=== PATIENT | female | born 1990 | race Caucasian/White ===

== ENCOUNTER 2018-07-10 13:46 | Observation (INO) | payer OTHER ==
[2018-07-10] MEDS: ALBUTEROL SO4 2.5/IPRATROPIUM 0.5 INH SOL 3 ML VIAL.NEB. NEB SCH ×4 (13:50→14:49)
--- NOTE | 2018-07-10 14:22 | PDOC ---
Rapid Medical Evaluation Chief Complaint: Asthma Time Seen by Provider: 07/10/18 14:19 Medical Evaluation: Allergies Allergy/AdvReac Type Severity Reaction Status Date / Time No Known Allergies Allergy Verified 07/10/18 14:18 07/10/18 14:19 I have performed a brief in-person evaluation of this patient. The patient presents with a chief complaint of: URI w/ sob and tightness, using rescue inhaler but still symptomatic. H/o asthma, PNA, smoker Pertinent physical exam findings: Tachy to 102 but speaking in full sentences w / some exp wheezing I have ordered the following:received 3 duonebs in [place], upreg/cxr/prednisone The patient will proceed to the ED for further evaluation. 07/10/18 14:25 Discharge Disposition - Diagnosis Asthma Qualifiers: Asthma severity: unspecified severity Asthma persistence: unspecified Asthma complication type: unspecified Qualified Code(s): J45.909 - Unspecified asthma, uncomplicated - Referrals - Patient Instructions - Post Discharge Activity
[2018-07-10] MEDS ORDERED: predniSONE 20 MG TABLET (UD) PO ONE (14:24)
[2018-07-10] MEDS ORDERED: predniSONE 20 MG TABLET (UD) ONE (14:46)
[2018-07-10] MEDS ORDERED: ALBUTEROL SO4 2.5/IPRATROPIUM 0.5 INH SOL 3 ML VIAL.NEB. NEB ONE (14:46)
--- NOTE | 2018-07-10 15:05 | PDOC ---
History of Present Illness - General Chief Complaint: Asthma Stated Complaint: ASTHMA Time Seen by Provider: 07/10/18 14:19 History Source: Patient Exam Limitations: No Limitations - History of Present Illness Initial Comments: 07/10/18 15:00 Patient states has been suffering with URI for the past week which is progressively worsened causing a re-exacerbation of her asthma the past 2-3 days. Denies fever, denies any earache or sore throat pain however states respiratory status is worsened, is bringing up thick clear and white phlegm. Has been using albuterol at home with minimal resolved. Timing/Duration: reports: other, getting worse Severity: reports: mild Modifying Factors: improves with: albuterol inhaler, coughing Associated Symptoms: reports: cough, nasal congestion, nasal drainage, wheezing. denies: fever/chills Past History - Travel Traveled outside of the country in the last 30 days: No Close contact w/someone who was outside of country & ill: No - Past Medical History Allergies/Adverse Reactions: Allergies Allergy/AdvReac Type Severity Reaction Status Date / Time No Known Allergies Allergy Verified 07/10/18 14:18 Home Medications: Ambulatory Orders Unobtainable 07/10/18 Asthma: Yes Cardiac Disorders: No COPD: No Diabetes: No GI Disorders: No Disorders: No HTN: No Seizures: No - Reproductive History PID: No - Immunization History Immunization Up to Date: Yes - Suicide/Smoking/Psychosocial Hx Smoking History: Current every day smoker Have you smoked in the past 12 months: Yes Number of Cigarettes Smoked Daily: 5 Information on smoking cessation initiated: No 'Breaking Loose' booklet given: 07/27/15 Hx Alcohol Use: No Drug/Substance Use Hx: No Substance Use Type: Alcohol Hx Substance Use Treatment: Yes (Marijuana 2006-[facility]) Respiratory Specific PMHX - Complaint Specific PMHX TB (Tuberculosis): No Review of Systems - Review of Systems Able to Perform ROS?: Yes Is the patient limited Venezuelan proficient: Yes Constitutional: Yes: Symptoms Reported, Malaise HEENTM: Yes: Symptoms Reported, See HPI, Nose Congestion. No: Throat Pain, Throat Swelling Respiratory: Yes: Symptoms reported, See HPI, Cough, Wheezing Musculoskeletal: No: Symptoms Reported Integumentary: No: Symptoms Reported, See HPI All Other Systems: Reviewed and Negative *Physical Exam - Vital Signs Last Vital Signs Temp Pulse Resp BP Pulse Ox 99.0 F 102 H 20 150/101 H 96 07/10/18 14:19 07/10/18 14:19 07/10/18 14:19 07/10/18 14:19 07/10/18 14:19 - Physical Exam General Appearance: Yes: Nourished, Appropriately Dressed, Apparent Distress, Moderate Distress HEENT: positive: JOSUÉ, TMs Normal, Pharynx Normal, Nasal Congestion, Rhinorrhea , Sinus Tenderness Neck: positive: Supple, Lymphadenopathy (R), Lymphadenopathy (L) Respiratory/Chest: positive: Decreased Breath Sounds, Wheezing. negative: Lungs Clear, Normal Breath Sounds Gastrointestinal/Abdominal: positive: Soft, Guarding, Rebound. negative: Tender Musculoskeletal: positive: Normal Inspection. negative: CVA Tenderness Extremity: positive: Normal Capillary Refill Integumentary: positive: Normal Color, Dry, Warm, Pale Neurologic: positive: explosive operator fuse II-XII NML intact, Fully Oriented, Normal Response, Motor Strength 07/19 ED Treatment Course - LABORATORY CBC & Chemistry Diagram: 07/10/18 19:32 07/10/18 19:32 - ADDITIONAL ORDERS Additional order review: Laboratory Results 07/10/18 14:26 Urine HCG, Qual Negative - Medications Given in the ED: ED Medications Discontinued Medications Generic Name Dose Route Start Last Admin Trade Name Anjelq PRN Reason Stop Dose Admin Prednisone 60 mg 07/10/18 14:24 07/10/18 14:49 Deltasone - PO 07/10/18 14:25 60 mg ONCE ONE Administration Medical Decision Making - Medical Decision Making 07/10/18 16:03 from waiting room, after approximately one hour, and receiving 4 DuoNeb treatments for tight asthmatic symptom while in waiting room. Moved to room 2 and received fifth albuterol treatment with 60 mg of prednisone. Chest x-ray obtained which did not show significant infiltrate or pathology, but patient's respiratory status has not improved. after additional hour. Due to significant number of treatments and steroid use without significant resolve, breath sounds continued tight expiratory wheezing. Patient understands may need overnight admission for continued treatment and observation. Discussed with charge nurse and moved patient to room 6. 07/10/18 19:56 *DC/Admit/Observation/Transfer Diagnosis at time of Disposition: Asthma exacerbation Qualifiers: Asthma severity: unspecified severity Asthma persistence: persistent Qualified Code(s): J45.901 - Unspecified asthma with (acute) exacerbation - Discharge Dispostion Disposition: HOME Condition at time of disposition: Stable Decision to Admit order: No - Referrals Referrals: Glynn Fair MD [Primary Care Provider] - - Patient Instructions - Post Discharge Activity
[2018-07-10] MEDS ORDERED: TERBUTALINE SULFATE 1 MG/1 ML VIAL SQ ONE ×2 (19:23→19:54)
[2018-07-10] MEDS ORDERED: MAGNESIUM SULF 50% (8.12 MEQ/2 ML-1 GM VIAL) IVPB ONE (19:23)
--- NOTE | 2018-07-10 19:24 | PDOC ---
*Physical Exam - Vital Signs Last Vital Signs Temp Pulse Resp BP Pulse Ox 99.0 F 85 16 126/69 97 07/10/18 14:19 07/10/18 18:48 07/10/18 18:48 07/10/18 18:48 07/10/18 19:08 - Physical Exam General Appearance: Yes: Appropriately Dressed, Obese. No: Apparent Distress HEENT: positive: EOMI, JOSUÉ, Normal ENT Inspection, Nasal Congestion Neck: positive: Trachea midline, Supple. negative: Lymphadenopathy (R), Lymphadenopathy (L) Respiratory/Chest: positive: Wheezing (bilaterally). negative: Chest Tender Cardiovascular: positive: Regular Rhythm, Regular Rate, S1, S2. negative: Edema , JVD, Murmur Gastrointestinal/Abdominal: positive: Normal Bowel Sounds, Soft. negative: Tender Musculoskeletal: negative: CVA Tenderness Extremity: positive: Normal Capillary Refill. negative: Swelling, Calf Tenderness Integumentary: positive: Normal Color, Dry, Warm Neurologic: positive: corporate legal secretary II-XII NML intact, Fully Oriented, Alert, Normal Mood/ Affect, Normal Response, Motor Strength 07/19 ED Treatment Course - LABORATORY CBC & Chemistry Diagram: 07/10/18 19:32 07/10/18 19:32 - ADDITIONAL ORDERS Additional order review: Laboratory Results 07/10/18 14:26 Urine HCG, Qual Negative - Medications Given in the ED: ED Medications Discontinued Medications Generic Name Dose Route Start Last Admin Trade Name Anjelq PRN Reason Stop Dose Admin Albuterol/Ipratropium 1 amp 07/10/18 14:30 07/10/18 14:49 Duoneb - NEB 07/10/18 15:16 1 amp Q15M KALLIE Administration Prednisone 60 mg 07/10/18 14:24 07/10/18 14:49 Deltasone - PO 07/10/18 14:25 60 mg ONCE ONE Administration Medical Decision Making - Medical Decision Making 07/10/18 19:35 Pt is a 28yo F with PMH of Asthma, HTN, DM presenting to ED with complaints of SOB due to asthma exacerbation. Pt states she was having a cold and congestion for the past few days and difficulty breathing but today the breathing was much worse. She did not have improvement even with use of rescue inhaler which pt states she used "many times". She has not been using her nebulizer because it is broken. She endorses chest pain since she started having the congestion. Denies syncope, abdominal pain, fevers, chills, productive cough, n/v/d, recent travel, leg swelling, recent surgeries. Denies use of OCPs. She has been hospitalized in the past for asthma exacerbation. Has never been intubated. She was seen in [facility], given 4 duonebs and 60mg prednisode without relief. PMD: Manjula PMH: see hpi PSH: none Meds: insulin, albuterol, htn pills Allergies: nkda Social: smokes 5 cigarettes/day pt continues to have wheezing bilaterally, saturating mid 90s on NC. Still feels sob. will admit for asthma exacerbation. -2mg MG. -labs, ekg. labs show leukocytosis (pt received steroids prior to blood draw) normal d-dimer. trop negative. ekg: nsr at 91. no kecia or depressions. slight t wave flattening in V1, V2, aVL. cxr: no acute pathology. pt continues to have wheezing and feels short of breath. will admit obs for exacerbation. admitted to hospitalist. *DC/Admit/Observation/Transfer Diagnosis at time of Disposition: Asthma exacerbation Qualifiers: Asthma severity: unspecified severity Asthma persistence: persistent Qualified Code(s): J45.901 - Unspecified asthma with (acute) exacerbation - Discharge Dispostion Disposition: HOME Condition at time of disposition: Stable Decision to Admit order: Yes - Referrals Referrals: Glynn Fair MD [Primary Care Provider] - - Patient Instructions - Post Discharge Activity
[2018-07-10] MEDS ORDERED: MAGNESIUM 1GM/D5W - 2 GM/200 ML IVPB IVPB ONE (19:54)
[2018-07-10 19:55] LABS: BASO % 0.3 % (0-2.0); HEMOGLOBIN 13.4 GM/dL (10.7-15.3); LYMPH % 3.3 % (8-40); MCH 33.3 pg (25.7-33.7); MCHC 34.2 g/dl (32.0-36.0); MEAN CELL VOLUME 97.2 fl (80-96); MEAN PLT VOLUME 9.1 fl (7.5-11.1); MONO % 1.2 % (3.8-10.2); NEUT % 95.2 % (42.8-82.8); PLATELET COUNT 242 K/MM3 (134-434); RBC 4.01 M/mm3 (3.60-5.2); RDW 13.8 % (11.6-15.6)
[2018-07-10 20:11] LABS: ALBUMIN 4.2 g/dl (3.4-5.0); ALK PHOS 65 U/L (45-117); ANION GAP 9 MMOL/L (8-16); BILIRUBIN,TOTAL 0.5 mg/dL (0.2-1); BLOOD UREA NITROGEN 8 mg/dL (7-18); CHLORIDE 107 mmol/L (98-107); CO2 22 mmol/L (21-32); CREATININE 0.7 mg/dL (0.55-1.3); GLUCOSE,RANDOM 137 mg/dL (74-106); MAGNESIUM 2.3 mg/dL (1.8-2.4); SGOT/AST 19 U/L (15-37); SGPT/ALT 22 U/L (13-61); SODIUM 138 mmol/L (136-145); TOT PROT 7.9 g/dl (6.4-8.2)
[2018-07-10 20:33] LABS: CALCIUM 9.2 mg/dL (8.5-10.1)
--- NOTE | 2018-07-10 20:56 | PN ---
Teaching Attending Note Name of Resident: Berenice Almonte ATTENDING PHYSICIAN STATEMENT I saw and evaluated the patient. I reviewed the resident's note and discussed the case with the resident. I agree with the resident's findings and plan as documented. SUBJECTIVE: Patient is a 28 year old woman with a PMH of NIDDM, asthma and hypertension who presents to the ER with shortness of breath secondary to asthma exacerbation today. The patient states that she has had a cold and associated congestion for the past few days with difficulty breathing. She states that her breathing had worsened today despite use of her inhaler. She denies use of her nebulizer at home secondary to non-functionality. The patient has had some chest pain with her congestion. She has been hospitalized in the past for asthma exacerbation but never been intubated. Has been around her 3 year old niece who has URI symptoms and she has had URI symptoms for the past week with productive cough. She denies any fever or chills at this time. Denies nausea, vomiting, diarrhea, constipation or urinary symptoms. She denies any headache, dizziness, numbness, weakness. She denies any other complaints. OBJECTIVE: Alert Vital Signs Period Temp Pulse Resp BP Sys/Mills Pulse Ox Last 24 Hr 98.9 F-99.0 F 85-102 16-20 126-150/69-101 91-98 HEENT: No Jaundice, eye redness or discharge, PERRLA, EOMI. Normocephalic, atraumatic. External ears are normal and hearing is grossly intact. No nasal discharge. Neck: Supple, nontender. No palpable adenopathy or thyromegaly. No JVD Chest: Good effort. Clear to auscultation and percussion. Heart: Regular. No S3, rub or murmur Abdomen: Not distended, soft, nontender and no HSM. No rebound or guarding. Normal bowel sounds. Ext: Peripheral pulses intact. No leg edema. Skin: Warm and dry. No petechiae, rash or ecchymosis. Neuro: Alert. Oriented x3. CN 2-12 grossly intact. Sensation grossly intact in all four extremities and DTR are symmetric. Psych: Appropriate mood and affect. Good insight. Home Medications Medication Instructions Recorded Unobtainable 07/10/18 Abnormal Lab Results 07/10/18 07/10/18 19:32 19:32 WBC 13.0 H MCV 97.2 H Absolute Neuts (auto) 12.4 H Neutrophils % 95.2 H D Lymphocytes % 3.3 L D Monocytes % 1.2 L D Random Glucose 137 H Current Medications Generic Name Dose Route Start Last Admin Trade Name Maxine PRN Reason Stop Dose Admin Albuterol Sulfate 1 amp 07/10/18 21:58 Ventolin 0.083% Nebulizer Soln - NEB Q4H PRN SHORT OF BREATH/WHEEZING Albuterol/Ipratropium 1 amp 07/11/18 08:00 Duoneb - NEB RQID KALLIE Doxycycline Hyclate 100 mg 07/10/18 22:13 Vibramycin - PO BID@1000,1800 KALLIE Enoxaparin Sodium 40 mg 07/11/18 10:00 Lovenox - SQ DAILY KALLIE Ceftriaxone Sodium 1 gm/ 100 mls @ 200 mls/hr 07/10/18 22:12 Dextrose IVPB DAILY [facility] Protocol Insulin Aspart 1 vial 07/10/18 22:00 Novolog Vial Sliding Scale - SQ ACHS [facility] Protocol Methylprednisolone Sodium Succinate 40 mg 07/11/18 02:00 Solu-Medrol - IVPUSH Q8H-IV KALLIE ASSESSMENT AND PLAN: 1. Acute Asthma Exacerbation - Improved with all the acute measures in the ER. No acute infiltrate on CXR and EKG shows NSR with no significant ST-T wave changes. Will treat with IV solumedrol, duoneb, IV doxycycline and rocephin. Monitor peak flow. 2. DM Will implement sliding scale insulin regimen. Provide comprehensive diabetes care with patient teaching and counseling about the importance of adherence to prescribed diabetes regimen, euglycemia, eye care and foot care. 3. Tobacco Use Counseled on risks associated with tobacco use. We will provide patient all the necessary assistance to facilitate smoking cessation and prescribe Nicotine patch. 4. Obesity Counseled on the risks associated with obesity. Will provide patient all the necessary assistance, counseling and positive reinforcement to facilitate weight loss. Consult chimney repairer. 5. Hypertension - Restart outpatient antihypertensive drugs and revise regimen to ensure smooth [id number] good BP control. Nonpharmacologic measures to control hypertension like weight loss, salt restriction and exercise discussed. 6. DVT prophylaxis - Lovenox 40 mg SQ q 24 hours. 7. Advance directives - Full code
[2018-07-10] MEDS ORDERED: ACETAMINOPHEN 500 MG TABLET (FP) PO ONE (21:23)
[2018-07-10] MEDS ORDERED: ALBUTEROL SO4 0.083% IH SOL 2.5 MG/3 ML VIAL.NEB. NEB PRN (21:58)
[2018-07-10] MEDS ORDERED: AZITHROMYCIN IVPB 500 MG in DEXTROSE 5%-WATER - 250 ML IVPB ONE (22:06)
[2018-07-10] MEDS ORDERED: CEFTRIAXONE 1 GM in DEXTROSE 5%-WATER - 50 ML IVPB SCH (22:12)
[2018-07-10] MEDS ORDERED: DOXYCYCLINE HYCLATE 100 MG CAPSULE PO SCH (22:13)
--- NOTE | 2018-07-10 22:20 | HP ---
CHIEF COMPLAINT: sob PCP: Dr. Fair HISTORY OF PRESENT ILLNESS: Patient is a 28 yo F with a PMHX of Asthma, HTN, DM who presented because of worsening SOB over the last week. She said she developed viral symptoms last week with cough (yellow sputum production), fever of 100.5, runny nose and sore throat. She has been using her inhaler more this week with relief but today she was not able to control her symptoms with the inhaler which prompted her to go to the ER. She said she has not been using her Nebulizer because its broken. She said she got sick from her niece who had similar symptoms last week. She is a daycare worker. Never intubated. She said she gets an asthma exacerbation at least once a year. She said last year she was admitted at [facility] for an exacerbation. In the ED she was noted to be wheezing and saturating in the mid 90's. D dimer was negative. She was given 60mg prednisone in the ED and Nebs x 4 with magnesium and terbutaline with improvement in symptoms She denies nausea, vomiting, diarrhea, abdominal pain, chest pain. No recent travel or OCP use. ER course was notable for: (1) CXR unremarkable Recent Travel: denies PAST MEDICAL HISTORY: per HPI Social History: Smokin cigarettes a day Alcohol: rarely Drugs: denies Family History: Allergies No Known Allergies Allergy (Verified 07/10/18 14:18) HOME MEDICATIONS: Home Medications Medication Instructions Recorded Unobtainable 07/10/18 REVIEW OF SYSTEMS CONSTITUTIONAL: fevers Absent: chills, diaphoresis, generalized weakness, malaise, loss of appetite, weight change HEENT: rhinorrhea, nasal congestion, throat pain Absent: throat swelling, difficulty swallowing, mouth swelling, ear pain, eye pain, visual changes CARDIOVASCULAR: Absent: chest pain, syncope, palpitations, irregular heart rate, lightheadedness , peripheral edema RESPIRATORY: sob, wheezing, cough Absent: dyspnea with exertion, orthopnea, stridor, hemoptysis GASTROINTESTINAL: Absent: abdominal pain, abdominal distension, nausea, vomiting, diarrhea, constipation, melena, hematochezia GENITOURINARY: Absent: dysuria, frequency, urgency, hesitancy, hematuria, flank pain, genital pain SKIN: Absent: rash, itching, pallor NEUROLOGIC: Absent: headache, focal weakness or paresthesias, dizziness, unsteady gait, seizure, mental status changes, bladder or bowel incontinence PHYSICAL EXAMINATION Vital Signs - 24 hr 07/10/18 07/10/18 07/10/18 14:19 18:00 18:48 Temperature 99.0 F Pulse Rate 102 H Pulse Rate [ 85 Left] Respiratory 20 16 Rate Blood Pressure 150/101 H Blood Pressure 126/69 [Arm] O2 Sat by Pulse 96 97 91 L Oximetry (%) 07/10/18 07/10/18 19:08 21:06 Temperature 98.9 F Pulse Rate Pulse Rate [ 88 Left] Respiratory 18 Rate Blood Pressure Blood Pressure 134/78 [Arm] O2 Sat by Pulse 97 97 Oximetry (%) GENERAL: obese, in NAD, comfortable HEAD: Normal with no signs of trauma. EYES: Pupils equal, round and reactive to light, extraocular movements intact, sclera anicteric, conjunctiva clear. EARS, NOSE, THROAT: nares patent, oropharynx clear without exudates. Moist mucous membranes. NECK: Normal range of motion, supple without lymphadenopathy, JVD, or masses. LUNGS: clear breath sounds, no wheezing, no stridor HEART: distant heart sounds from body habitus, normal S1 and S2 without murmur, rub or gallop. ABDOMEN: obese, nontender, not distended, normoactive bowel sounds MUSCULOSKELETAL: Normal range of motion at all joints. No bony deformities or tenderness. No CVA tenderness. LOWER EXTREMITIES: 2+ pulses, No calf tenderness. No peripheral edema. NEUROLOGICAL: Cranial nerves II-XII intact. Normal speech PSYCHIATRIC: Cooperative. Good eye contact. Appropriate mood and affect. Laboratory Results - last 24 hr 07/10/18 07/10/18 07/10/18 14:26 19:32 19:32 WBC 13.0 H RBC 4.01 Hgb 13.4 Hct 39.0 MCV 97.2 H MCH 33.3 MCHC 34.2 RDW 13.8 Plt Count 242 MPV 9.1 Absolute Neuts (auto) 12.4 H Neutrophils % 95.2 H D Lymphocytes % 3.3 L D Monocytes % 1.2 L D Eosinophils % 0.0 D Basophils % 0.3 Nucleated RBC % 0 D-Dimer Sodium 138 Potassium 4.0 Chloride 107 Carbon Dioxide 22 Anion Gap 9 BUN 8 Creatinine 0.7 Creat Clearance w eGFR 98.25 Random Glucose 137 H Calcium 9.2 Magnesium 2.3 Total Bilirubin 0.5 AST 19 ALT 22 Alkaline Phosphatase 65 Troponin I Total Protein 7.9 Albumin 4.2 Urine HCG, Qual Negative 07/10/18 07/10/18 19:32 19:46 WBC RBC Hgb Hct MCV MCH MCHC RDW Plt Count MPV Absolute Neuts (auto) Neutrophils % Lymphocytes % Monocytes % Eosinophils % Basophils % Nucleated RBC % D-Dimer < 215 Sodium Potassium Chloride Carbon Dioxide Anion Gap BUN Creatinine Creat Clearance w eGFR Random Glucose Calcium Magnesium Total Bilirubin AST ALT Alkaline Phosphatase Troponin I < 0.02 Total Protein Albumin Urine HCG, Qual ASSESSMENT/PLAN: 28 yo F with a PMHX of Asthma, HTN, DM who presented because of worsening SOB over the last week and admitted for acute asthma exacerbation #Acute Asthma Exacerbation -likely provoked from viral illness vs. pna (yellow sputum production) -Duonebs QID -Albuterol PRN -O2 supplementation -Peak flow -Medrol 40 q8h -Antibiotics: Doxy (qtc 476), Ceftriaxone -Negative D-dimer -EKG shows NSR with no significant ST-T wave changes #DM -sliding scale -says she takes insulin. will need med rec in AM. [facility] #HTN -did not remember htn medication -resume in AM -med rec #Obesity -student loan counselor on risks of obesity and weight loss #Tobacco use -student loan counselor on risks of tobacco use #FEN -no iv fluids -monitor -diabetic diet #DVT ppx -lovenox sq Visit type - Emergency Visit Emergency Visit: Yes ED Registration Date: 07/10/18 Care time: The patient presented to the Emergency Department on the above date and was hospitalized for further evaluation of their emergent condition. - New Patient This patient is new to me today: Yes Date on this admission: 07/10/18 - Critical Care Critical Care patient: No
[2018-07-10] MEDS ORDERED: ACETAMINOPHEN 325 MG TABLET (FP) ONE (22:21)
[2018-07-10] MEDS: INSULIN SLIDING SCALE (NOVOLOG) 1 VIAL SQ SCH (22:29)
--- NOTE | 2018-07-11 00:11 | PDOC ---
Documentation entered by Mahesh Solano SCRIBE, acting as scribe for Renetta Bear MD. Renetta Bear MD: This documentation has been prepared by the Russ davenport Collisia, SCRIBE, under my direction and personally reviewed by me in its entirety. I confirm that the documentation accurately reflects all work, treatment, procedures, and medical decision making performed by me. *Physical Exam - Vital Signs Last Vital Signs Temp Pulse Resp BP Pulse Ox 99.0 F 85 16 126/69 97 07/10/18 14:19 07/10/18 18:48 07/10/18 18:48 07/10/18 18:48 07/10/18 19:08 ED Treatment Course - LABORATORY CBC & Chemistry Diagram: 07/10/18 19:32 07/10/18 19:32 - ADDITIONAL ORDERS Additional order review: Laboratory Results 07/10/18 14:26 Urine HCG, Qual Negative - Medications Given in the ED: ED Medications Discontinued Medications Generic Name Dose Route Start Last Admin Trade Name Maxine PRN Reason Stop Dose Admin Albuterol/Ipratropium 1 amp 07/10/18 14:30 07/10/18 14:49 Duoneb - NEB 07/10/18 15:16 1 amp Q15M KALLIE Administration Prednisone 60 mg 07/10/18 14:24 07/10/18 14:49 Deltasone - PO 07/10/18 14:25 60 mg ONCE ONE Administration Medical Decision Making - Medical Decision Making 07/10/18 19:39 Pt has a HR of 60; she is afebrile. States that she has had no need for prednisone in years. She thinks she caught a cold from her 3yo neice; she also works in a day care. She is a smoker. She is not on OCPs. She has no other complaints. She desaturates off O2. On nasal cannula her O2sat is 96%. She will be admitted to hospalist. 07/10/18 20:44 Ddimer is normal. Pt wull be admitted for asthma exacerbation and hypoxemia 07/10/18 20:55 The patient is a 28 year old female with a significant past medical history of diabetes, asthma, hypertension who presents to the emergency department with shortness of breath secondary to asthma exacerbation today. The patient states that she has had a cold and associated congestion for the past few days with difficulty breathing. She states that her breathing had worsened today despite use of her inhaler. She denies use of her nebulizer at home secondary to non- functionality. The patient endorses some associated chest pain with her congestion . she states that she has been hospitalized in the past for asthma exacerbation. She denies any fever, chills, nausea, vomiting, diarrhea, constipation or urinary symptoms. She denies any headache, dizziness, numbness, weakness. She denies any other complaints. *DC/Admit/Observation/Transfer Diagnosis at time of Disposition: Asthma exacerbation Qualifiers: Asthma severity: unspecified severity Asthma persistence: persistent Qualified Code(s): J45.901 - Unspecified asthma with (acute) exacerbation - Discharge Dispostion Disposition: HOME Condition at time of disposition: Stable - Referrals Referrals: Glynn Fair MD [Primary Care Provider] - - Patient Instructions - Post Discharge Activity
[2018-07-11] MEDS ORDERED: ALBUTEROL SO4 0.083% IH SOL 2.5 MG/3 ML VIAL.NEB. NEB ONE (00:58)
[2018-07-11 02:34] VITALS: BMI 33.1
[2018-07-11] MEDS ORDERED: DEXTROSE 5%-WATER - 50 ML IVPB ONE ×2 (02:37→08:38)
[2018-07-11] MEDS ORDERED: cefTRIAXone SODIUM 1 GM VIAL ONE ×2 (02:37→08:38)
[2018-07-11] MEDS: DOXYCYCLINE HYCLATE 100 MG CAPSULE PO SCH ×2 (02:44→09:07)
[2018-07-11] MEDS: CEFTRIAXONE 1 GM in DEXTROSE 5%-WATER - 50 ML IVPB SCH ×2 (02:44→09:06)
[2018-07-11] MEDS: methylPREDNISolone NA SUCC 40 MG/1 ML VIAL IVPUSH SCH ×3 (02:44→17:01)
[2018-07-11] MEDS: INSULIN SLIDING SCALE (NOVOLOG) 1 VIAL SQ SCH ×4 (06:14→22:32)
[2018-07-11 08:08] LABS: BASO % 0.2 % (0-2.0); HEMATOCRIT 37.8 % (32.4-45.2); LYMPH % 7.4 % (8-40); MCH 33.9 pg (25.7-33.7); MCHC 34.5 g/dl (32.0-36.0); MEAN CELL VOLUME 98.3 fl (80-96); MEAN PLT VOLUME 9.3 fl (7.5-11.1); MONO % 2.9 % (3.8-10.2); NEUT % 89.5 % (42.8-82.8); PLATELET COUNT 243 K/MM3 (134-434); RBC 3.85 M/mm3 (3.60-5.2); RDW 13.4 % (11.6-15.6); WHITE BLOOD COUNT 9.6 K/mm3 (4.0-10.0)
[2018-07-11] MEDS: ALBUTEROL SO4 2.5/IPRATROPIUM 0.5 INH SOL 3 ML VIAL.NEB. NEB SCH ×4 (08:30→20:30)
[2018-07-11 08:56] LABS: ALBUMIN 3.8 g/dl (3.4-5.0); ALK PHOS 61 U/L (45-117); ANION GAP 10 MMOL/L (8-16); BILIRUBIN,TOTAL 0.4 mg/dL (0.2-1); BLOOD UREA NITROGEN 12 mg/dL (7-18); CALCIUM 9.1 mg/dL (8.5-10.1); CHLORIDE 106 mmol/L (98-107); CO2 22 mmol/L (21-32); CREATININE 0.8 mg/dL (0.55-1.3); GLUCOSE,RANDOM 132 mg/dL (74-106); MAGNESIUM 2.4 mg/dL (1.8-2.4); PHOSPHOROUS 2.6 mg/dL (2.5-4.9); POTASSIUM 4.3 mmol/L (3.5-5.1); SGOT/AST 18 U/L (15-37); SGPT/ALT 21 U/L (13-61); SODIUM 137 mmol/L (136-145); TOT PROT 7.6 g/dl (6.4-8.2)
[2018-07-11] MEDS: ENOXAPARIN NA (PORCINE) 40 MG/0.4 ML DISP.SYRIN SQ SCH (09:07)
[2018-07-11] MEDS ORDERED: CEFTRIAXONE 1 GM in DEXTROSE 5%-WATER - 100 ML IVPB SCH (10:00)
[2018-07-11] MEDS ORDERED: DOXYCYCLINE HYCLATE 100 MG CAPSULE PO SCH ×2 (10:00)
--- NOTE | 2018-07-11 10:46 | PN ---
Physical Exam: SUBJECTIVE: Patient seen and examined she is better but still have wheezing no fever or chills no distress oob and walking OBJECTIVE: Vital Signs Period Temp Pulse Resp BP Sys/Mills Pulse Ox Last 24 Hr 98.0 F-99.0 F 63-102 16-20 126-162/69-101 91-99 GENERAL: The patient is awake, alert, and fully oriented, in no acute distress. HEAD: Normal with no signs of trauma. EYES: PERRL, extraocular movements intact, sclera anicteric, conjunctiva clear. No ptosis. ENT: Ears normal, nares patent, oropharynx clear without exudates, moist mucous membranes. NECK: Trachea midline, full range of motion, supple. LUNGS: david wheezing and it is more on exp than inspiratory HEART: Regular rate and rhythm, S1, S2 without murmur, rub or gallop. ABDOMEN: Soft, nontender, nondistended, normoactive bowel sounds, no guarding, no rebound, no hepatosplenomegaly, no masses. EXTREMITIES: 2+ pulses, warm, well-perfused, no edema. NEUROLOGICAL: Cranial nerves II through XII grossly intact. Normal speech, gait not observed. PSYCH: Normal mood, normal affect. SKIN: Warm, dry, normal turgor, no rashes or lesions noted Laboratory Results - last 24 hr 07/10/18 07/10/18 07/10/18 14:26 19:32 19:32 WBC 13.0 H RBC 4.01 Hgb 13.4 Hct 39.0 MCV 97.2 H MCH 33.3 MCHC 34.2 RDW 13.8 Plt Count 242 MPV 9.1 Absolute Neuts (auto) 12.4 H Total Counted 100 Neutrophils % 95.2 H D Neutrophils % (Manual) 91.0 H Lymphocytes % 3.3 L D Lymphocytes % (Manual) 7.0 L Monocytes % 1.2 L D Monocytes % (Manual) 2 L Eosinophils % 0.0 D Basophils % 0.3 Nucleated RBC % 0 D-Dimer Sodium 138 Potassium 4.0 Chloride 107 Carbon Dioxide 22 Anion Gap 9 BUN 8 Creatinine 0.7 Creat Clearance w eGFR 98.25 POC Glucometer Random Glucose 137 H Calcium 9.2 Phosphorus Magnesium 2.3 Total Bilirubin 0.5 AST 19 ALT 22 Alkaline Phosphatase 65 Troponin I Total Protein 7.9 Albumin 4.2 Urine HCG, Qual Negative 07/10/18 07/10/18 07/10/18 19:32 19:46 22:26 WBC RBC Hgb Hct MCV MCH MCHC RDW Plt Count MPV Absolute Neuts (auto) Total Counted Neutrophils % Neutrophils % (Manual) Lymphocytes % Lymphocytes % (Manual) Monocytes % Monocytes % (Manual) Eosinophils % Basophils % Nucleated RBC % D-Dimer < 215 Sodium Potassium Chloride Carbon Dioxide Anion Gap BUN Creatinine Creat Clearance w eGFR POC Glucometer 145 Random Glucose Calcium Phosphorus Magnesium Total Bilirubin AST ALT Alkaline Phosphatase Troponin I < 0.02 Total Protein Albumin Urine HCG, Qual 07/11/18 07/11/18 07/11/18 05:47 06:30 06:30 WBC 9.6 RBC 3.85 Hgb 13.0 Hct 37.8 MCV 98.3 H MCH 33.9 H MCHC 34.5 RDW 13.4 Plt Count 243 MPV 9.3 Absolute Neuts (auto) 8.6 H Total Counted Neutrophils % 89.5 H Neutrophils % (Manual) Lymphocytes % 7.4 L D Lymphocytes % (Manual) Monocytes % 2.9 L D Monocytes % (Manual) Eosinophils % 0.0 Basophils % 0.2 Nucleated RBC % 0 D-Dimer Sodium 137 Potassium 4.3 Chloride 106 Carbon Dioxide 22 Anion Gap 10 BUN 12 Creatinine 0.8 Creat Clearance w eGFR 84.22 POC Glucometer 248 Random Glucose 132 H Calcium 9.1 Phosphorus 2.6 Magnesium 2.4 Total Bilirubin 0.4 AST 18 ALT 21 Alkaline Phosphatase 61 Troponin I Total Protein 7.6 Albumin 3.8 Urine HCG, Qual Active Medications Generic Name Dose Route Start Last Admin Trade Name Freq PRN Reason Stop Dose Admin Albuterol Sulfate 1 amp 07/10/18 21:58 07/11/18 01:10 Ventolin 0.083% Nebulizer Soln - NEB 1 amp Q4H PRN Administration SHORT OF BREATH/WHEEZING Albuterol/Ipratropium 1 amp 07/11/18 08:00 07/11/18 08:30 Duoneb - NEB 1 amp RQID KALLIE Administration Cefuroxime Axetil 500 mg 07/11/18 22:00 Ceftin - PO BID KALLIE Enoxaparin Sodium 40 mg 07/11/18 10:00 07/11/18 09:07 Lovenox - SQ 40 mg DAILY KALLIE Administration Insulin Aspart 1 vial 07/10/18 22:00 07/11/18 06:14 Novolog Vial Sliding Scale - SQ 4 units ACHS KALLIE Administration Protocol Methylprednisolone Sodium Succinate 40 mg 07/11/18 02:00 07/11/18 09:06 Solu-Medrol - IVPUSH 40 mg Q8H-IV KALLIE Administration ASSESSMENT/PLAN: Acute Asthma Exacerbation - Improved with all the acute measures in the ER. No acute infiltrate on CXR and EKG shows NSR with no significant ST-T wave changes. Will treat with IV solumedrol, duoneb, IV doxycycline and rocephin. Monitor peak flow. since patient better and her cxr is clear will stop iv doxy and rocephin and start on ceftin po and continue prednisone will monitor sugar and blood pressure Visit type - Emergency Visit Emergency Visit: Yes ED Registration Date: 07/10/18 Care time: The patient presented to the Emergency Department on the above date and was hospitalized for further evaluation of their emergent condition. - New Patient This patient is new to me today: Yes Date on this admission: 07/11/18 - Critical Care Critical Care patient: No - Discharge Referral Referred to [facility] Med [facility] No
--- NOTE | 2018-07-11 15:09 | EKG ---
Test Reason : Blood Pressure : / mmHG Vent. Rate : 091 BPM Atrial Rate : 091 BPM P-R Int : 164 ms QRS Dur : 080 ms QT Int : 386 ms P-R-T Axes : 067 040 061 degrees QTc Int : 474 ms NORMAL SINUS RHYTHM NORMAL ECG NO PREVIOUS ECGS AVAILABLE Confirmed by MELISSA BAEZA MD ([id number]) on 07/11/2018 3:09:43 PM Referred By: Confirmed By:MELISSA BAEZA MD
[2018-07-11] MEDS ORDERED: PT OWN MED DRAWER 7, Y5N ONE (21:23)
[2018-07-11] MEDS: CEFUROXIME AXETIL 500 MG TABLET PO SCH (22:30)
[2018-07-12] MEDS: ALBUTEROL SO4 2.5/IPRATROPIUM 0.5 INH SOL 3 ML VIAL.NEB. NEB SCH ×6 (00:14→20:07)
[2018-07-12] MEDS: methylPREDNISolone NA SUCC 40 MG/1 ML VIAL IVPUSH SCH ×3 (02:17→17:01)
[2018-07-12] MEDS: INSULIN SLIDING SCALE (NOVOLOG) 1 VIAL SQ SCH ×4 (06:21→21:35)
--- NOTE | 2018-07-12 08:51 | PN ---
Physical Exam: SUBJECTIVE: Patient seen and examined much better no sob but mild wheezing no fever or chills sugar is better OBJECTIVE: Vital Signs GENERAL: The patient is awake, alert, and fully oriented, in no acute distress. Vital Signs Period Temp Pulse Resp BP Sys/Mills Pulse Ox Last 24 Hr 98.0 F-98.8 F 58-80 20-20 143-155/72-98 95-96 HEAD: Normal with no signs of trauma. EYES: PERRL, extraocular movements intact, sclera anicteric, conjunctiva clear. No ptosis. ENT: Ears normal, nares patent, oropharynx clear without exudates, moist mucous membranes. NECK: Trachea midline, full range of motion, supple. LUNGS: Breath sounds equal, clear to auscultation bilaterally, no wheezes, no crackles, no accessory muscle use. HEART: Regular rate and rhythm, S1, S2 without murmur, rub or gallop. ABDOMEN: Soft, nontender, nondistended, normoactive bowel sounds, no guarding, no rebound, no hepatosplenomegaly, no masses. EXTREMITIES: 2+ pulses, warm, well-perfused, no edema. NEUROLOGICAL: Cranial nerves II through XII grossly intact. Normal speech, gait not observed. PSYCH: Normal mood, normal affect. SKIN: Warm, dry, normal turgor, no rashes or lesions noted 07/11/18 06:30 07/11/18 06:30 Active Medications Current Medications Albuterol Sulfate (Ventolin 0.083% Nebulizer Soln -) 1 amp NEB Q4H PRN PRN Reason: SHORT OF BREATH/WHEEZING Last Admin: 07/11/18 01:10 Dose: 1 amp Albuterol/Ipratropium (Duoneb -) 1 amp NEB RQ4H [facility] Last Admin: 07/12/18 08:04 Dose: 1 amp Cefuroxime Axetil (Ceftin -) 500 mg PO BID [facility] Last Admin: 07/11/18 22:30 Dose: 500 mg Enoxaparin Sodium (Lovenox -) 40 mg SQ DAILY [facility] Last Admin: 07/11/18 09:07 Dose: 40 mg Insulin Aspart (Novolog Vial Sliding Scale -) 1 vial SQ ACHS [facility]; Protocol Last Admin: 07/12/18 06:21 Dose: 2 units Methylprednisolone Sodium Succinate (Solu-Medrol -) 40 mg IVPUSH Q8H-IV KALLIE Last Admin: 07/12/18 02:17 Dose: 40 mg ASSESSMENT/PLAN: Acute Asthma Exacerbation - Improved with all the acute measures in the ER. No acute infiltrate on CXR and EKG shows NSR with no significant ST-T wave changes. since patient better and her cxr is clear and continue prednisone will monitor sugar and blood pressure she is much better if stable d/c am Problem List - Problems (1) Asthma Code(s): J45.909 - UNSPECIFIED ASTHMA, UNCOMPLICATED Qualifiers: Asthma severity: unspecified severity Asthma persistence: unspecified Asthma complication type: unspecified Qualified Code(s): J45.909 - Unspecified asthma, uncomplicated (2) Asthma exacerbation Code(s): J45.901 - UNSPECIFIED ASTHMA WITH (ACUTE) EXACERBATION Qualifiers: Asthma severity: unspecified severity Asthma persistence: persistent Qualified Code(s): J45.901 - Unspecified asthma with (acute) exacerbation (3) Hyperglycemia Code(s): R73.9 - HYPERGLYCEMIA, UNSPECIFIED Visit type - Emergency Visit Emergency Visit: Yes ED Registration Date: 07/10/18 Care time: The patient presented to the Emergency Department on the above date and was hospitalized for further evaluation of their emergent condition. - New Patient This patient is new to me today: No - Critical Care Critical Care patient: No - Discharge Referral Referred to [facility] Med P.C.: No
[2018-07-12] MEDS: ENOXAPARIN NA (PORCINE) 40 MG/0.4 ML DISP.SYRIN SQ SCH (09:21)
[2018-07-12] MEDS: CEFUROXIME AXETIL 500 MG TABLET PO SCH ×2 (09:21→21:34)
[2018-07-13] MEDS: methylPREDNISolone NA SUCC 40 MG/1 ML VIAL IVPUSH SCH ×2 (01:59→09:22)
[2018-07-13] MEDS: ALBUTEROL SO4 2.5/IPRATROPIUM 0.5 INH SOL 3 ML VIAL.NEB. NEB SCH ×4 (03:47→11:46)
[2018-07-13] MEDS: INSULIN SLIDING SCALE (NOVOLOG) 1 VIAL SQ SCH ×2 (06:04→11:19)
[2018-07-13] MEDS: CEFUROXIME AXETIL 500 MG TABLET PO SCH (09:22)
[2018-07-13] MEDS: ENOXAPARIN NA (PORCINE) 40 MG/0.4 ML DISP.SYRIN SQ SCH (09:22)
--- NOTE | 2018-07-13 09:37 | DS ---
Physical Exam: SUBJECTIVE: Patient seen and examined OBJECTIVE: Vital Signs Period Temp Pulse Resp BP Sys/Mills Pulse Ox Last 24 Hr 97.5 F-98.3 F 52-66 20-20 150-157/88-90 96-97 PHYSICAL EXAM GENERAL: The patient is awake, alert, and fully oriented, in no acute distress. HEAD: Normal with no signs of trauma. EYES: PERRL, extraocular movements intact, sclera anicteric, conjunctiva clear. ENT: Ears normal, nares patent, oropharynx clear without exudates, moist mucous membranes. NECK: Trachea midline, full range of motion, supple. LUNGS: Breath sounds equal, clear to auscultation bilaterally, no wheezes, no crackles, no accessory muscle use. HEART: Regular rate and rhythm, S1, S2 without murmur, rub or gallop. ABDOMEN: Soft, nontender, nondistended, normoactive bowel sounds, no guarding, no rebound, no hepatosplenomegaly, no masses. EXTREMITIES: 2+ pulses, warm, well-perfused, no edema. NEUROLOGICAL: Cranial nerves II through XII grossly intact. Normal speech, gait not observed. PSYCH: Normal mood, normal affect. SKIN: Warm, dry, normal turgor, no rashes or lesions noted. LABS Laboratory Results - last 24 hr 07/12/18 07/12/18 07/12/18 10:59 16:29 21:33 POC Glucometer 198 216 215 07/13/18 05:40 POC Glucometer 210 HOSPITAL COURSE: Date of Admission:07/10/18 Date of Discharge: 07/13/18 Minutes to complete discharge: 30 Discharge Summary Reason For Visit: EXACERBATION OF ASTHMA Current Active Problems Upper respiratory infection (Acute) Asthma (Chronic) Asthma exacerbation (Acute) Condition: Improved - Instructions Diet, Activity, Other Instructions: You were admitted to [facility] on July 10 after you came to the ER because of shortness of breath, cough, and fever. You were found to have an exacerbation of asthma caused by an upper respiratory infection. You were treated with steroids, antibiotics, and nebulizer treatments. You improved and are being discharged home on July 13. You will need to complete a course of antibiotics and steroids, and the following prescriptions have been sent to [facility]: Ceftin (antibiotic) 500 mg twice daily x 6 more doses Prednisone (steroid) 10 mg Dosepak: Day 1 (07/13) - take 6 tablets Day 2 (07/14) - take 5 tablets Day 3 (07/15) - take 4 tablets Day 4 (07/16) - take 3 tablets Day 5 (07/17) - take 2 tablets Day 6 (07/18) - take 1 tablet Please resume all your usual medications. You may resume your usual diet. You may return to work/school on Friday, July 20. Please schedule an appointment with your primary care physician, Dr. Glynn Fair, this week. If you experience worsening shortness of breath, fever, worsening cough, please call his office or return to the ER. Disposition: HOME - Home Medications Comprehensive Discharge Medication List: Ambulatory Orders Albuterol Sulfate Inhaler - [Ventolin HFA Inhaler -] 2 puff IN Q4H PRN 07/13/18 Cefuroxime Axetil [Ceftin -] 500 mg PO BID #6 tablet 07/13/18 Prednisone 10 mg PO ASDIR #1 tab.ds.pk 07/13/18 - Discharge Referral Referred to [facility] No
[2018-07-13 10:13] VITALS: BP 155/95; PULSE 65; TEMP 97.6
== END 2018-07-13 13:33 | disposition home or self-care (01) ==
LOC: JERFT 13:46 → JER 13:46 → JERBED 21:16 → INTOOBSV 21:16 → J7W 07-11 02:20
PROVIDERS: ADMIT Internal Medicine; ATTEND Internal Medicine
PROC: 3E0333Z Introduction of Anti-inflammatory into Peripheral Vein, Percutaneous Approach (ICD-10-PCS; principal; 2018-07-10)
PROC: 3E03329 Introduction of Other Anti-infective into Peripheral Vein, Percutaneous Approach (ICD-10-PCS; 2018-07-10)
PROC: 3E033GC Introduction of Other Therapeutic Substance into Peripheral Vein, Percutaneous Approach (ICD-10-PCS; 2018-07-10)
PROC: 3E013VG Introduction of Insulin into Subcutaneous Tissue, Percutaneous Approach (ICD-10-PCS; 2018-07-10)
PROC: 3E013GC Introduction of Other Therapeutic Substance into Subcutaneous Tissue, Percutaneous Approach (ICD-10-PCS; 2018-07-10)
PROC: 3E0F7GC Introduction of Other Therapeutic Substance into Respiratory Tract, Via Natural or Artificial Opening (ICD-10-PCS; 2018-07-10)
DX: J45.901 Unspecified asthma with (acute) exacerbation (principal); J06.9 Acute upper respiratory infection, unspecified; F17.210 Nicotine dependence, cigarettes, uncomplicated; I10 Essential (primary) hypertension; E11.65 Type 2 diabetes mellitus with hyperglycemia; E66.9 Obesity, unspecified; Z68.33 Body mass index [BMI] 33.0-33.9, adult
CPT/HCPCS: 36415; 71046-TC-FY; 80053; 82962; 83735; 84100; 84484; 84703; 85025; 85379; 93005; 93010; 94150; 94640; 96372; 96374; 96375; 99284-25; G0378

== ENCOUNTER 2018-12-04 13:42 | Emergency (ER) | payer OTHER ==
--- NOTE | 2018-12-04 14:01 | PDOC ---
Rapid Medical Evaluation Medical Evaluation: Allergies Allergy/AdvReac Type Severity Reaction Status Date / Time No Known Allergies Allergy Verified 07/10/18 14:18 I have performed a brief in-person evaluation of this patient. The patient presents with a chief complaint of: c/o epigastric pain x 1 week radiating to back; denies n/v/d, urinary complaints Pertinent physical exam findings: In NAD, +RUQ/epigastric tenderness, no cva tenderness I have ordered the following: labs, RUQ sono The patient will proceed to the ED for further evaluation. 12/04/18 13:58
[2018-12-04 14:03] VITALS: PULSE 75; BMI 41.5
[2018-12-04] MEDS ORDERED: ACETAMINOPHEN 1000 MG/100 ML VIAL (NON FORMULARY) IVPB ONE (14:04)
[2018-12-04 14:39] LABS: EOS % 2.7 % (0-4.5); HEMATOCRIT 40.9 % (32.4-45.2); HEMOGLOBIN 13.5 GM/dL (10.7-15.3); LYMPH % 28.3 % (8-40); MCH 31.4 pg (25.7-33.7); MCHC 33.1 g/dl (32.0-36.0); MEAN CELL VOLUME 94.9 fl (80-96); MEAN PLT VOLUME 9.4 fl (7.5-11.1); MONO % 6.4 % (3.8-10.2); NEUT % 61.6 % (42.8-82.8); PLATELET COUNT 271 K/MM3 (134-434); RBC 4.31 M/mm3 (3.60-5.2); RDW 13.6 % (11.6-15.6); WHITE BLOOD COUNT 9.1 K/mm3 (4.0-10.0)
[2018-12-04 14:52] LABS: URINE APPEARANCE CLEAR; URINE BILIRUBIN NEGATIVE (NEGATIVE); URINE COLOR YELLOW; URINE GLUCOSE (UA) NEGATIVE (NEGATIVE); URINE KETONE TRACE (NEGATIVE); URINE LEUK ESTERASE NEGATIVE (NEGATIVE); URINE NITRITE NEGATIVE (NEGATIVE); URINE PROTEIN TRACE (NEGATIVE)
[2018-12-04 15:02] LABS: ALBUMIN 4.2 g/dl (3.4-5.0); BILIRUBIN,TOTAL 0.6 mg/dL (0.2-1); BLOOD UREA NITROGEN 11.7 mg/dL (7-18); CALCIUM 9.3 mg/dL (8.5-10.1); CREATININE 0.8 mg/dL (0.55-1.3); POTASSIUM 4.1 mmol/L (3.5-5.1); TOT PROT 7.9 g/dl (6.4-8.2)
[2018-12-04] MEDS ORDERED: ACETAMINOPHEN INJECTION 100 ML IVPB ONE (17:04)
--- NOTE | 2018-12-04 17:42 | PDOC ---
History of Present Illness - General Chief Complaint: Pain Stated Complaint: ABD PAIN Time Seen by Provider: 12/04/18 13:58 - History of Present Illness Initial Comments: 12/04/18 17:37 CHIEF COMPLAINT: abdominal pain HISTORY OF PRESENT ILLNESS: 28 yo F with hx of IDDM and HTN presents to ED with epigastric pain x 1 week. Reports intermittent nausea, denies any fevers, chills, vomiting or diarrhea. Patient states she has not had her period for two months. Denies any urinary symptoms. PCP is Dr. Fair OBWANN: Gay Jack No recent travel or sick contacts. PAST MEDICAL HISTORY: Denies past medical history FAMILY HISTORY: Denies SOCIAL HISTORY: Denies tobacco, alcohol, illicit drug use. SURGICAL HISTORY: Denies ALLERGIES: No known drug allergies REVIEW OF SYSTEMS General/Constitutional: Denies fever or chills. Denies weakness, weight change. HEENT: Denies change in vision. Denies ear pain or discharge. Denies sore throat. Cardiovascular: Denies chest pain or shortness of breath. Respiratory: Denies cough, wheezing, or hemoptysis. Gastrointestinal: Abdominal pain x 1 week. Denies nausea, vomiting, diarrhea or constipation. Denies rectal bleeding. Genitourinary: Denies dysuria, frequency, or change in urination. Musculoskeletal: Denies joint or muscle swelling or pain. Denies neck or back pain. Skin: Denies rash or easy bruising. Neurologic: Denies headache, vertigo, loss of consciousness, or loss of sensation. Psychiatric: Denies depression or anxiety. PHYSICAL EXAM General Appearance: Well-appearing, appropriately dressed. No apparent distress. HEENT: EOMI, PERRLA, normal ENT inspection, normal voice, TMs normal, pharynx normal. No conjunctival pallor. No photophobia, scleral icterus. Neck: Supple. Trachea midline. No tenderness, rigidity, carotid bruit, stridor , lymphadenopathy, or thyromegaly. Respiratory/Chest: Lungs CTAB. No shortness of breath, chest tenderness, respiratory distress, accessory muscle use. No crackles, rales, rhonchi, stridor , wheezing, dullness Cardiovascular: RRR. S1, S2. No JVD, murmur, bradycardia, tachycardia. Vascular Pulses: Dorsalis-Pedis (R): 2+, Dorsalis-Pedis (L): 2+ Gastrointestinal/Abdominal: Marked epigastric/RUQ tenderness. Normal bowel sounds. Abdomen soft, non-distended. No tenderness or rebound tenderness. No organomegaly, pulsatile mass, guarding, hernia, hepatomegaly, splenomegaly. Musculoskeletal/Extremities: Normal inspection. FROM of all extremities, normal capillary refill. Pelvis Stable. No CVA tenderness. No tenderness to extremities, pedal edema, swelling, erythema or deformity. Integumentary: Appropriate color, dry, warm. No cyanosis, erythema, jaundice or rash Neurologic: furniture dipper II-XII intact. Fully oriented, alert. Appropriate mood/affect. Motor strength 5/5. No appreciable EOM palsy, facial droop or sensory deficit. 12/04/18 19:03 Past History - Past Medical History Allergies/Adverse Reactions: Allergies Allergy/AdvReac Type Severity Reaction Status Date / Time No Known Allergies Allergy Verified 07/10/18 14:18 Home Medications: Ambulatory Orders Albuterol Sulfate Inhaler - [Ventolin HFA Inhaler -] 2 puff IN Q4H PRN 07/13/18 Cefuroxime Axetil [Ceftin -] 500 mg PO BID #6 tablet 07/13/18 Prednisone 10 mg PO ASDIR #1 tab.ds.pk 07/13/18 Prednisone 10 mg PO ASDIR #1 tab.ds.pk 07/15/18 Pantoprazole Sodium [Protonix] 40 mg PO DAILY #20 tablet. 12/04/18 Anemia: No Asthma: Yes Cancer: No Cardiac Disorders: No CVA: No COPD: No CHF: No Dementia: No Diabetes: Yes GI Disorders: No Disorders: No HTN: No Hypercholesterolemia: No Liver Disease: No Seizures: No Thyroid Disease: No - Surgical History Abdominal Surgery: No Appendectomy: No Cardiac Surgery: No Cholecystectomy: No Lung Surgery: No Neurologic Surgery: No Orthopedic Surgery: No - Reproductive History PID: No - Immunization History Immunization Up to Date: Yes - Suicide/Smoking/Psychosocial Hx Smoking History: Never smoked Have you smoked in the past 12 months: Yes Number of Cigarettes Smoked Daily: 5 'Breaking Loose' booklet given: 07/27/15 Hx Alcohol Use: No Drug/Substance Use Hx: No Substance Use Type: Alcohol Hx Substance Use Treatment: Yes (Marijuana 2006-[facility]) Abd/GI Specific PMHX - Complaint Specific PMHX Hepatitis: No Pancreatitis: No *Physical Exam - Vital Signs Last Vital Signs Temp Pulse Resp BP Pulse Ox 75 16 155/117 H 96 12/04/18 14:00 12/04/18 14:00 12/04/18 14:00 12/04/18 14:00 ED Treatment Course - LABORATORY CBC & Chemistry Diagram: 12/04/18 14:17 12/04/18 14:17 - ADDITIONAL ORDERS Additional order review: Laboratory Results 12/04/18 12/04/18 12/04/18 14:17 14:17 14:17 Sodium 139 Potassium 4.1 Chloride 108 H Carbon Dioxide 25 Anion Gap 6 L BUN 11.7 Creatinine 0.8 Est GFR (CKD-EPI)AfAm 114.66 Est GFR (CKD-EPI)NonAf 98.93 Random Glucose 113 H Calcium 9.3 Total Bilirubin 0.6 AST 19 ALT 30 Alkaline Phosphatase 73 Total Protein 7.9 Albumin 4.2 Lipase 174 Urine Color Yellow Urine Appearance Clear Urine pH 5.0 Ur Specific [place] 1.036 H Urine Protein Trace Urine Glucose (UA) Negative Urine Ketones Trace H Urine Blood Negative Urine Nitrite Negative Urine Bilirubin Negative Urine Urobilinogen 1.0 Ur Leukocyte Esterase Negative Urine HCG, Qual Negative 12/04/18 14:17 RBC 4.31 MCV 94.9 MCHC 33.1 RDW 13.6 MPV 9.4 Neutrophils % 61.6 D Lymphocytes % 28.3 D Monocytes % 6.4 D Eosinophils % 2.7 D Basophils % 1.0 D - Medications Given in the ED: ED Medications Discontinued Medications Generic Name Dose Route Start Last Admin Trade Name Freq PRN Reason Stop Dose Admin Acetaminophen 1,000 mg 12/04/18 14:04 12/04/18 17:18 Ofirmev Injection - IVPB 12/04/18 14:05 1,000 mg ONCE ONE Administration Medical Decision Making - Medical Decision Making 12/04/18 17:44 28 yo F with hx of IDDM and HTN presents to ED with abdominal pain x 1 week. -labs -US Patient received Tylenol IV from triage. 12/04/18 18:28 US negative. GI cocktail given. Patient admits to exacerbation of symptoms after eating heavy foods. Likely GERD. Advised patient to take medication as prescribed and follow up with GI. Advised patient of signs and symptoms for return to ED. Patient verbalized understanding and agrees to plan. *DC/Admit/Observation/Transfer Diagnosis at time of Disposition: GERD (gastroesophageal reflux disease) Qualifiers: Esophagitis presence: without esophagitis Qualified Code(s): K21.9 - Gastro- esophageal reflux disease without esophagitis - Discharge Dispostion Disposition: HOME Condition at time of disposition: Stable Decision to Admit order: No - Prescriptions Prescriptions: Pantoprazole Sodium [Protonix] 40 mg PO DAILY #20 tablet.dr - Referrals Referrals: Glynn Fair MD [Primary Care Provider] - Domenico Correa MD [Staff Physician] - - Patient Instructions Printed Discharge Instructions: DI for Gastroesophageal Reflux Disease (GERD), GERD Diet Additional Instructions: Please take medications as prescribed. As discussed, follow up with gastroenterology for continued monitoring and further evaluation of your symptoms. If you develop nausea, vomiting, diarrhea, fever, chills, or any new or worsening symptoms, please return to the ER. - Post Discharge Activity
[2018-12-04] MEDS ORDERED: FAMOTIDINE 20 MG/50 ML IVPB 20 MG/50 ML MG IVPB ONE ×2 (18:29→19:05)
[2018-12-04] MEDS ORDERED: DICYCLOMINE HCL 10 MG CAPSULE PO ONE (18:29)
[2018-12-04] MEDS ORDERED: PANTOPRAZOLE SODIUM 40 MG VIAL IVPUSH ONE (18:29)
[2018-12-04] MEDS ORDERED: MAG HYDROX/AL HYDROX/SIMETH 30 ML UNIT-DOSE CUP PO ONE (18:32)
[2018-12-04] MEDS ORDERED: DICYCLOMINE HCL 10 MG CAPSULE ONE (19:05)
[2018-12-04] MEDS ORDERED: PANTOPRAZOLE SODIUM 40 MG VIAL ONE (19:05)
[2018-12-04] MEDS ORDERED: MAG HYDROX/AL HYDROX/SIMETH 30 ML UNIT-DOSE CUP ONE (19:05)
[2018-12-04 20:14] VITALS: BP 157/89
== END 2018-12-04 20:14 | disposition home or self-care (01) ==
LOC: JER 13:42
PROC: 3E033GC Introduction of Other Therapeutic Substance into Peripheral Vein, Percutaneous Approach (ICD-10-PCS; principal; 2018-12-04)
PROC: 3E033GC Introduction of Other Therapeutic Substance into Peripheral Vein, Percutaneous Approach (ICD-10-PCS; 2018-12-04)
PROC: 3E033NZ Introduction of Analgesics, Hypnotics, Sedatives into Peripheral Vein, Percutaneous Approach (ICD-10-PCS; 2018-12-04)
DX: K21.9 Gastro-esophageal reflux disease without esophagitis (principal); E10.9 Type 1 diabetes mellitus without complications; Z79.4 Long term (current) use of insulin; J45.909 Unspecified asthma, uncomplicated
CPT/HCPCS: 36415; 76705-TC; 80053; 81003; 83690; 84703; 85025; 99283-25; J0131

== ENCOUNTER 2020-06-20 12:34 | Emergency (ER) | payer OTHER ==
[2020-06-20 13:15] VITALS: BP 147/97; PULSE 71; BMI 32.4
== END 2020-06-20 14:05 | disposition home or self-care (01) ==
LOC: JERFT 12:34
DX: S93.402A Sprain of unspecified ligament of left ankle, initial encounter (principal)
CPT/HCPCS: 73610-TC-LT-FY; 73630-TC-LT; 99283-25

== ENCOUNTER 2021-07-15 15:48 | Emergency (ER) | payer OTHER ==
[2021-07-15 15:52] VITALS: BP 146/96; PULSE 82; TEMP 97; BMI 26.6
== END 2021-07-15 17:46 | disposition home or self-care (01) ==
LOC: JERFT 15:48 → JER 15:48 → JERFT 17:46
DX: B02.9 Zoster without complications (principal)
CPT/HCPCS: 99283-25

== ENCOUNTER 2022-10-22 10:36 | Emergency (ER) | payer OTHER ==
[2022-10-22 11:14] VITALS: BP 144/96; PULSE 60; RESP 16; TEMP 98; BMI 32.5
[2022-10-22] MEDS ORDERED: ACETAMINOPHEN 500 MG TABLET (FP) PO ONE (12:29)
[2022-10-22] MEDS ORDERED: ACETAMINOPHEN 500 MG TABLET (FP) ONE (12:32)
[2022-10-22 12:40] LABS: BASO % 0.6 % (0-2.0); EOS % 1.3 % (0-4.5); HEMATOCRIT 37.6 % (32.4-45.2); HEMOGLOBIN 12.3 GM/dL (10.7-15.3); LYMPH % 20.6 % (8-40); MCH 31.3 pg (25.7-33.7); MCHC 32.6 g/dl (32.0-36.0); MEAN CELL VOLUME 95.9 fl (80-96); MEAN PLT VOLUME 8.8 fl (7.5-11.1); MONO % 5.9 % (3.8-10.2); NEUT % 71.6 % (42.8-82.8); PLATELET COUNT 265 10^3/uL (134-434); RBC 3.92 M/mm3 (3.60-5.2)
[2022-10-22 12:42] LABS: EPI CELLS >36 /uL (0-25.1); HYALINE CASTS 2 /uL (0-3.1); PH,URINE 5.5 (5.0-8.0); URINE APPEARANCE CLOUDY; URINE BACTERIA 136 /uL (0-1359); URINE BILIRUBIN NEGATIVE (NEGATIVE); URINE COLOR YELLOW; URINE GLUCOSE (UA) NEGATIVE (NEGATIVE); URINE KETONE NEGATIVE (NEGATIVE); URINE LEUK ESTERASE NEGATIVE (NEGATIVE); URINE NITRITE NEGATIVE (NEGATIVE); URINE PROTEIN NEGATIVE (NEGATIVE); URINE RBC 10 /uL (0-23.9); URINE UROBILINOGEN 0.2 mg/dL (0.2-1.0); URINE WBC 13 /uL (0-25.8)
[2022-10-22 12:45] LABS: POTASSIUM 4.8 mmol/L (3.5-5.1)
[2022-10-22 12:47] LABS: CALCIUM 9.2 mg/dL (8.5-10.1)
[2022-10-22 12:49] LABS: ALBUMIN 3.9 g/dl (3.4-5.0); BLOOD UREA NITROGEN 10.7 mg/dL (7-18)
[2022-10-22 12:51] LABS: CREATININE 0.8 mg/dL (0.55-1.3)
[2022-10-22 12:53] LABS: BILIRUBIN,TOTAL 0.4 mg/dL (0.2-1); TOT PROT 7.2 g/dl (6.4-8.2)
== END 2022-10-22 15:19 | disposition home or self-care (01) ==
LOC: JER 10:36 → JERFT 10:36
DX: R10.31 Right lower quadrant pain (principal); R10.32 Left lower quadrant pain; N93.9 Abnormal uterine and vaginal bleeding, unspecified
CPT/HCPCS: 36415; 76830-TC; 80053; 81003; 84703; 85025; 87086; 99284-25